=== PATIENT | female | born 1930 | race Caucasian/White ===

== ENCOUNTER 2017-07-06 04:33 | Emergency (ER) | payer MEDICARE, BC ==
[2017-07-06 05:19] LABS: Hematocrit 34 % (35-47); Hemoglobin 11.5 g/dl (12.0-16.0); Mean Corpuscular HGB Conc 34 g/dl (31-36); Mean Corpuscular Hemoglobin 34 pg (27-31); Mean Corpuscular Volume 101 fL (80-97); Mean Platelet Volume 6 um3 (7.4-10.4); Red Blood Count 3.39 10^6/ul (4.0-5.4); Red Cell Distribution Width 13 % (10.5-15); White Blood Count 8.1 10^3/ul (3.5-10.8)
[2017-07-06 05:34] LABS: Albumin 3.4 g/dL (3.2-5.2); BUN/Creatinine Ratio 19.6 (8-20); Calcium 9.4 mg/dL (8.6-10.3); EGFR African American 73.9 (>60); EGFR Non-African American 57.5 (>60); Globulin 3.5 g/dL (2-4); Potassium 3.7 mmol/L (3.5-5.0); Total Bilirubin 0.4 mg/dL (0.2-1.0); Total Protein 6.9 g/dL (6.4-8.9)
--- NOTE | 2017-07-06 05:44 | ED ---
Lazarus Duval Thomas, scribed for Najma Armijo MD on 07/06/17 at 0518 . GI/ HPI - HPI Summary HPI Summary: The pt is an 87 y/o F with a Hx of dementia BIBA from the half-way with because she had bloody stools. Per half-way, she had alex red blood in her stool. She is on Eliquis. Per half-way, there are concerns that the patient has a rectal prolapse. She is accompanied by two family members. LEVEL FIVE CAVEAT: HPI LIMITED DUE TO DEMENTIA - History of Current Complaint Chief Complaint: EDGIBleed Time Seen by Provider: 07/06/17 04:40 Stated Complaint: POSS GI BLEED Hx Obtained From: Patient, Family/[employer] - two family members, Other: - half-way Onset/Duration: Started Hours Ago - earlier today, Still Present Timing: Intermittent Severity: Moderate Pain Intensity: 0 Additional Signs & Symptoms: Positive: Other: - bloody stools Aggravating Factor(s): Nothing Alleviating Factor(s): Nothing - Allergy/Home Medications Allergies/Adverse Reactions: Allergies Allergy/AdvReac Type Severity Reaction Status Date / Time Azithromycin Allergy Unknown Verified 07/21/16 14:21 Reaction Details Clopidogrel [From Plavix] Allergy Unknown Verified 07/21/16 14:21 Reaction Details Penicillins Allergy Unknown Verified 07/21/16 14:21 Reaction Details PMH/Surg Hx/FS Hx/Imm Hx Previously Healthy: No - LEVEL FIVE CAVEAT: PMH LIMITED DUE TO DEMENTIA Infectious Disease History: No Infectious Disease History: Denies: Traveled Outside the [place] in Last 30 Days - Family History Known Family History: Positive: Other - LEVEL FIVE CAVEAT: FHX LIMITED DUE TO DEMENTIA - Social History Alcohol Use: None Substance Use Type: Reports: None Smoking Status (MU): Never Smoked Tobacco Review of Systems - ROS Summary Review of Systems Summary: LEVEL FIVE CAVEAT: ROS LIMITED DUE TO DEMENTIA Positive: Other - Bloody stools All Other Systems Reviewed And Are Negative: No Physical Exam - Summary Physical Exam Summary: VITAL SIGNS: Reviewed. GENERAL: Patient is an elderly female who is lying comfortable in the stretcher. Patient is not in any acute respiratory distress. HEAD AND FACE: No signs of trauma. No ecchymosis, hematomas or skull depressions. No sinus tenderness. EYES: PERRLA, EOMI x 2, No injected conjunctiva, no nystagmus. EARS: Hearing grossly intact. Ear canals and tympanic membranes are within normal limits. MOUTH: Oropharynx within normal limits. NECK: Supple, trachea is midline, no adenopathy, no JVD, no carotid bruit, no c- spine tenderness, neck with full ROM. CHEST: Symmetric, no tenderness at palpation LUNGS: Clear to auscultation bilaterally. No wheezing or crackles. CVS: Regular rate and rhythm, S1 and S2 present, no murmurs or gallops appreciated. ABDOMEN: Soft, non-tender. No signs of distention. No rebound no guarding, and no masses palpated. Bowel sounds are normal. EXTREMITIES: FROM in all major joints, no edema, no cyanosis or clubbing. NEURO: Alert and oriented x 3. No acute neurological deficits. Speech is normal and follows commands. SKIN: Dry and warm RECTAL: There are external hemorrhoids. There is no bleeding. There is an empty rectum. LEVEL FIVE CAVEAT: PHYSICAL EXAM LIMITED DUE TO DEMENTIA Triage Information Reviewed: Yes Vital Signs On Initial Exam: Initial Vitals Temp Pulse Resp BP Pulse Ox 97.3 F 60 16 167/69 92 07/06/17 04:39 07/06/17 04:39 07/06/17 04:39 07/06/17 04:39 07/06/17 04:39 Vital Signs Reviewed: Yes - [place] Coma Scale Coma Scale Total: 14 Diagnostics - Vital Signs Vital Signs Temp Pulse Resp BP Pulse Ox 07/06/17 04:39 97.3 F 60 16 167/69 92 - Laboratory Result Diagrams: 07/06/17 05:09 07/06/17 05:09 Lab Statement: Any lab studies that have been ordered have been reviewed, and results considered in the medical decision making process. GIGU Course/Dx - Course Assessment/Plan: The pt is an 87 y/o F with a Hx of dementia BIBA from the half-way with because she had bloody stools. Per half-way, she had alex red blood in her stool. She is on Eliquis. Per half-way, there are concerns that the patient has a rectal prolapse. She is accompanied by two family members. Rectal examination shows There are external hemorrhoids. There is no bleeding. There is an empty rectum. Bloodwork was obtained and lab values are stable to the patients baseline. The patient is diagnosed with hemorrhoids and rectal pain. The patient is instructed to follow up with primary care. - Diagnoses Provider Diagnoses: Hemorrhoids, Rectal pain Discharge - Discharge Plan Condition: Stable Disposition: HOME Patient Education Materials: Hemorrhoids (ED), Rectal Pain (ED) Referrals: Cecil Ibarra MD [Primary Care Provider] - 3 Days Additional Instructions: Follow up with your primary care physician in three days. Return to the emergency department for any new or worsening symptoms. The documentation as recorded by the Lazarus beck Thomas accurately reflects the service I personally performed and the decisions made by Zofia leach Abdul, MD.
[2017-07-06 06:04] VITALS: BP 170/60
== END 2017-07-06 06:24 | disposition home or self-care (01) ==
LOC: ED 04:33
DX: K64.9 Unspecified hemorrhoids (principal); K62.89 Other specified diseases of anus and rectum
CPT/HCPCS: 36415; 80053; 85025; 85610; 85730; 86850; 86900; 86901; 99283